=== PATIENT | male | born 1980 | race Caucasian/White ===

== ENCOUNTER 2019-12-20 12:37 | Outpatient (CLI) | payer MEDICAID ==
[~2019-12-20 12:37] MED LIST: NO HOME MEDS
== END 2019-12-20 23:59 | disposition home or self-care (01) ==
LOC: CARD DIAG 12:37
PROVIDERS: ATTEND Obstetrics & Gynecology
DX: F11.20 Opioid dependence, uncomplicated (principal)
CPT/HCPCS: 93005